=== PATIENT | male | born 1995 ===

== ENCOUNTER 2025-09-23 10:30 | Emergency (ER) | payer OTHER, SELFPAY ==
--- NOTE | ~2025-09-23 | CT_ITS ---
EXAMINATION: CT ABDOMEN AND PELVIS WITHOUT CONTRAST CLINICAL INFORMATION: Left flank pain and hematuria. COMPARISON: None available. TECHNIQUE: Multidetector volumetric imaging was performed from the superior aspect of the liver through the pubic symphysis. Sagittal and coronal reformatted images were obtained on the technologist's workstation. This CT examination was performed using dose optimization techniques as appropriate, variously including the following: *Automated exposure control *Adjustment of mA and/or kV according to patient size (this includes techniques or standardized protocols for targeted exams where dose is matched to indication/reason for exam; i.e. extremities or head) *Use of iterative reconstruction technique FINDINGS: LUNG BASES: The lung bases are clear. The heart size is normal. There are no effusions present. Normal GE junction. LIVER, GALLBLADDER, AND BILIARY TREE: The unenhanced liver is normal in size, shape, and attenuation. There is a calcified granuloma in segment 6. No focal hepatic lesion or biliary ductal dilatation is present. The gallbladder is unremarkable with no evidence of radiopaque gallstones, gallbladder wall thickening, or obvious pericholecystic inflammatory changes. PANCREAS: Unremarkable. SPLEEN: Unremarkable. ADRENAL GLANDS: Unremarkable. KIDNEYS AND URETERS: There is mild left hydronephrosis and hydroureter secondary to a 2 x 4 mm obstructing calculus in the distal left ureter, a few centimeters proximal to the left UVJ. There are 2 mm nonobstructing calculi in the upper poles of both kidneys. There are no additional urological calculi. There are no renal masses. The right kidney demonstrates no evidence of hydronephrosis. Right ureter is nondilated. BLADDER: Normal in appearance. GASTROINTESTINAL TRACT: The stomach, duodenum, and small bowel appear normal. A normal appendix is visualized. The colon is normal in caliber and course. There are a few scattered diverticuli present. There is no wall thickening or inflammation. The rectum appears normal. ABDOMINAL WALL: There is no hernia or mass. LYMPH NODES: There is no abnormal lymphadenopathy present. VASCULAR: Normal in appearance. PELVIC VISCERA: The prostate is normal. Seminal vesicles are normal. OSSEOUS STRUCTURES: There is no suspicious lytic or blastic bone lesion. CT/CT abdomen pelvis wo IV con IMPRESSION: 1. Mild left hydronephrosis and hydroureter secondary to a 2 x 4 mm obstructing calculus in the distal left ureter, a few cm proximal to the left UVJ. 2. There are 2 mm nonobstructing calculi in the upper poles of both kidneys. There are no additional urological calculi present. The kidneys are otherwise normal in appearance. Electronically signed by: Burton Morris MD 09/23/2025 02:49 PM [place]
[2025-09-23 11:05] VITALS: BP 140/65; PULSE 65; RESP 18; TEMP 36.7; O2SAT 99; BMI 39.3
--- NOTE | 2025-09-23 11:24 | ED.MALEGU ---
HPI - Male Genitourinary General Chief complaint: Urogenital-Male Stated complaint: kidney stone Time Seen by Provider: 09/23/25 11:31 Source: patient Mode of arrival: ambulatory Limitations: no limitations History of Present Illness ED Provider: ASAD TALAVERA Narrative: 30-year-old male with no significant past medical history here with complaint of developing left-sided abdominal pain yesterday that radiates up to the ribs as well as his left testicle. He has not had a fever but he has nausea, he noted hematuria this morning. He has no prior history of kidney stones. He has no testicular lesions or pain when touching that area. He has not had prior abdominal surgery. He has not taken any medications for the pain. MD Complaint: other (Left flank pain and hematuria) Onset (ago): day(s) (1) Duration: constant Location: left flank Radiation: left testicle Severity: moderate Quality: sharp Relieving factors: none Exacerbating factors: none Associated symptoms: Reports blood in urine and nausea/vomiting Related Data Previous Rx's ?Medication ?Instructions ?Recorded hydrocodone 5 mg-acetaminophen 300 1 tab PO Q8H PRN pain 3 days #14 09/23/25 mg tablet tabs ketorolac 10 mg tablet 10 mg PO TID PRN pain 5 days #15 09/23/25 tabs ondansetron 4 mg disintegrating 4 mg PO Q8H PRN nausea and 09/23/25 tablet vomiting #20 tabs tamsulosin 0.4 mg capsule 0.4 mg PO DAILY 7 days #7 caps 09/23/25 Allergies Allergy/AdvReac Type Severity Reaction Status Date / Time No Known Allergies Allergy Verified 09/23/25 11:06 Review of Systems Review of Systems: Constitutional : No Fever, No Chills ENT/Mouth : No sore throat Eyes: No Eye Pain, No Swelling, No Redness Cardiovascular : No Chest Pain, No SOB Respiratory : No Cough, No Sputum, No Wheezing Gastrointestinal : positive Nausea, Vomiting, No Diarrhea, positive abdominal pain Genitourinary : No Dysuria, no urinary frequency, positive Hematuria, positive Flank Pain Musculoskeletal : No joint pain, No Myalgias Skin : No Skin Lesions, No rash Neuro : No Weakness, No Numbness, No Headache All other systems reviewed and are negative PMFSH Past Medical History Attestation statement: The following information was validated with the patient. Source: old records reviewed Medical History No pertinent past medical history Social History Social History (Updated 09/23/25 @ 11:37 by Beatrice Pop DO) Patient Tobacco Use Status: Never used Tobacco Physical Exam Vital Signs: Vital Signs: Last Vital Signs Temp 97.9 F 09/23/25 15:43 Pulse 62 09/23/25 15:43 Resp 15 09/23/25 15:43 BP 140/86 H 09/23/25 15:43 Pulse Ox 100 09/23/25 15:43 O2 Del Method Room Air 09/23/25 15:43 BMI result Body Mass Index 39.3 Appearance: Alert. Oriented X3. acute distress. Appears uncomfortable in pain mild distress Eyes: Pupils equal, round and reactive to light. ENT: Pharynx normal. Neck: Normal inspection. Neck supple. CVS: Normal heart rate and rhythm. Pulses normal. Respiratory: No respiratory distress. Breath sounds normal. Abdomen: Soft has mild left mid abdominal pain as well as left CVA tenderness to palpation Skin: Skin warm and dry. Normal skin color. Normal skin turgor. Extremities: No lower extremity edema. Neuro: Oriented X 3. No motor deficit. No sensory deficit. CN2-12 intact Course Course Course Narrative: RME: 30 yold male presents tot he ED for left side dtesticular pain raidaring up to ribs with hematuria. labs Utrasound ordered. Medications Administered Discontinued Medications Generic Name Dose Route Start Last Admin Trade Name Freq PRN Reason Stop Dose Admin Lactated Ringer's 1,000 mls @ 999 mls/hr 09/23/25 11:41 09/23/25 14:34 Lr IV 09/23/25 12:41 Infused .Q1H1M ONE Infusion Ketorolac Tromethamine 15 mg 09/23/25 11:41 09/23/25 12:10 Ketorolac Tromethamine 15 Mg/Ml Vial IVPUSH 09/23/25 11:42 15 mg ONCE ONE Administration Morphine Sulfate 4 mg 09/23/25 11:41 09/23/25 12:10 Morphine Sulfate 4 Mg/Ml Cartridge IVPUSH 09/23/25 11:42 4 mg ONCE ONE Administration Protocol Ondansetron HCl 4 mg 09/23/25 11:41 09/23/25 12:10 Ondansetron Hcl 4 Mg/2 Ml Vial IVPUSH 09/23/25 11:42 4 mg ONCE ONE Administration Medical Decision Making Medical Decision Making [facility] Narrative: 30-year-old male with no significant past medical history here with complaint of left flank pain as well as hematuria this started yesterday now he has radiation to his left groin. He has no testicular pain or hernia felt on exam. At this time I suspect he has renal colic. I am going to obtain kidney function, urine, CT scan to assess for stone. Due to his pain I will start on IV Toradol as well as IV morphine. Differential Diagnosis Differential Diagnoses: The differential diagnosis associated with the presentation includes Renal colic, constipation, urinary tract infection Admission/Observation Consideration of admission/observation: Escalation of care including admission/observation considered Feels much better kidney function normal no UTI can be managed with pain control He will be given expectant management reasons to return Lab Data [facility] Lab Attestation statement: I reviewed the patient's lab results. 09/23/25 11:30 09/23/25 11:30 Labs: Lab Results 09/23/25 Range/Units 11:30 WBC 7.3 (4.8-10.8) X10*3/uL RBC 4.95 (4.60-5.80) X10*6/uL Hgb 14.9 (14.0-18.0) g/dl Hct 43.0 (42.0-52.0) % MCV 86.9 (80.0-98.0) fL MCH 30.1 (27.0-33.0) pg MCHC 34.7 (31.0-36.0) g/dl RDW 12.1 (11.0-16.0) % Plt Count 304 (160-400) X10*3/uL MPV 9.3 L (9.4-12.4) fL Immature Gran % (Auto) 0.7 H (0.0-0.4) % Neut % (Auto) 61.3 (45-73) % Lymph % (Auto) 29.6 (20-40) % Barber % (Auto) 5.6 (2-11) % Eos % (Auto) 1.8 (0-4) % Baso % (Auto) 1.0 (0-2) % Lymph # (Auto) 2.2 (1.2-4.9) X10*3/uL Barber # (Auto) 0.4 (0.1-1.2) X10*3/uL Eos # (Auto) 0.1 (0.0-0.4) X10*3/uL Baso # (Auto) 0.1 (0.0-0.2) X10*3/uL Abs Immat Gran (auto) 0.05 H (0.00-0.03) X10*3/uL Absolute Neuts (auto) 4.5 (2.0-8.3) x10*3/uL Absolute Nucleated RBC 0.000 (0.0-0.012) X10*3/uL Nucleated RBC % (auto) 0.0 (0.0-0.2) /100WBC Sodium 141 (135-145) mmol/L Potassium 3.9 (3.3-5.1) mmol/L Chloride 107 (96-108) mmol/L Carbon Dioxide 29 (22-29) mmol/L Anion Gap 9 L (12-20) BUN 10 (9-16) mg/dL Creatinine 0.79 (0.5-1.4) mg/dL Estim Creat Clear Calc 156.9 Estimated GFR > 60 Random Glucose 96 (60-115) mg/dL Calcium 8.9 (8.4-10.2) mg/dL Total Bilirubin 0.5 (0.0-1.0) mg/dL AST 23 (5-37) U/L ALT 25 (0-40) U/L Alkaline Phosphatase 48 (39-117) U/L Total Protein 7.7 (6.5-8.0) g/dL Albumin 4.8 (3.5-5.0) g/dL Urine Color Red A Urine Appearance Clear Urine pH 8.0 (5.0-9.0) Ur Specific [place] 1.010 (1.005-1.025) Urine Protein 30 (1+) H (Neg-Trace) mg/dL Urine Glucose (UA) Negative (Negative) mg/dL Urine Ketones Negative (Negative) mg/dL Urine Blood Large (3+) H (Negative) Urine Nitrite Negative (Negative) Ur Leukocyte Esterase Trace H (Negative) Urine RBC >20 H (0-2) /HPF Urine WBC 0-5 (0-5) /HPF Ur Squamous Epith Cells 0-2 (0-2) /HPF Urine Bacteria None Seen (None Seen) Hyaline Casts 0-2 (0-2) /LPF Ur N gonorrhoeae DNA (PCR) NOT DETECTED (Not Detect.) Ur Chlamydia DNA (PCR) NOT DETECTED (Not Detect.) Independent Interpretation I performed an independent interpretation of an: CT Scan (Given the size of the stone in the distal left ureter I suspect he might pass this at home we will trial with medications and instructed to return if it does not improve) Radiology Impression Discussion of test interpretation with radiology: I have reviewed the radiologist's reading. External Record Review External record reviewed: Outpatient record Prescription Management I considered prescription management with: Pain Medication and Other Discharge Plan Discharge Clinical Impression: Ureterolithiasis Patient Disposition: Home, Self-Care Instructions: Ureteral Stones (ED) Additional Instructions: Your labs are reassuring in your urine shows no infection On your CT scan you do have stones in the right kidney that are very small but you also have a stone in the left ureter which is a small to that carries urine down from your kidney to your bladder. The stone the stone is 2mm by 4 mm it is very close to where the bladder starts and he will likely pass this at home. You need to drink plenty of fluids and stay hydrated Take medications when you have pain do not wait too long as he will start vomiting Return for any fevers greater than 100.4, inability to urinate, inability to eat or drink, or any other concerns [facility] will be contacting you within 2 business days after being discharged from the Emergency Department. During this phone call, they will inform you when your follow up appointment will be scheduled. If you have not received a call from [facility] after 2 business days, please call the office at [phone]. Prescriptions: New ketorolac 10 mg tablet 10 mg PO TID PRN (Reason: pain) 5 Days Qty: 15 0RF Rx Instructions: given IV toradol in department tamsulosin 0.4 mg capsule 0.4 mg PO DAILY 7 Days Qty: 7 0RF ondansetron 4 mg tablet,disintegrating 4 mg PO Q8H PRN (Reason: nausea and vomiting) Qty: 20 0RF hydrocodone-acetaminophen 5-300 mg tablet 1 tab PO Q8H PRN (Reason: pain) 3 Days Qty: 14 0RF Rx Instructions: Partial Fill upon patient request. Stand Alone Forms: Work/School Release Interventions: ED Discharge Assessment Last Done: 09/23/25 15:43 Discharge Date/Time: 09/23/25 15:44 Print Language: Cameroonian
[2025-09-23 11:46] LABS: MANUAL DIFF FLAG NO
[2025-09-23 11:48] LABS: Appearance Urine Clear; Glucose Urine UA Negative (Negative); Hematocrit 43.0 % (42.0-52.0); Hemoglobin 14.9 g/dl (14.0-18.0); Imm Gran Abs Auto 0.05 X10*3/uL (0.00-0.03); Imm Gran Pct Auto 0.7 % (0.0-0.4); Lymphocytes Absolute Auto 2.2 X10*3/uL (1.2-4.9); Mean Corpuscular HGB Conc 34.7 g/dl (31.0-36.0); Mean Corpuscular Hemoglobin 30.1 pg (27.0-33.0); Mean Corpuscular Volume 86.9 fL (80.0-98.0); NRBC Abs Auto 0.000 X10*3/uL (0.0-0.012); NRBC Pct Auto 0.0 /100WBC (0.0-0.2); PH 8.0 (5.0-9.0); Platelet Count 304 X10*3/uL (160-400); Red Blood Count 4.95 X10*6/uL (4.60-5.80); Specific Gravity - Urine 1.010 (1.005-1.025); UMIC TRIGGER UACC YES; White Blood Count 7.3 X10*3/uL (4.8-10.8)
[2025-09-23 12:06] LABS: Alanine Aminotransferase 25 U/L (0-40); Albumin Level 4.8 g/dL (3.5-5.0); Alkaline Phosphatase 48 U/L (39-117); Anion Gap 9 (12-20); Aspartate Amino Transferase 23 U/L (5-37); Blood Urea Nitrogen 10 mg/dL (9-16); Calcium 8.9 mg/dL (8.4-10.2); Carbon Dioxide 29 mmol/L (22-29); Chloride 107 mmol/L (96-108); Creatinine Clr Calc Pharmacy 156.9; Estimated Glomerular Filt Rate > 60; Potassium 3.9 mmol/L (3.3-5.1); Sodium 141 mmol/L (135-145); Total Protein 7.7 g/dL (6.5-8.0)
[2025-09-23] MEDS: Lactated Ringers 1,000 ML 999 ML IV (12:08)
[2025-09-23 13:22] LABS: CT PCR Urine NOT DETECTED (Not Detect.); NG PCR Urine NOT DETECTED (Not Detect.)
[2025-09-23 15:27] VITALS: BP 140/86; PULSE 62; RESP 15; TEMP 36.6; O2SAT 100
[2025-09-23 15:43] VITALS: BP 140/86; PULSE 62; RESP 15; TEMP 36.6; O2SAT 100
== END 2025-09-23 15:44 | disposition home or self-care (01) ==
PROVIDERS: Physician Assistant; Emergency Provider Emergency Medicine
DX: N20.1 Calculus of ureter (principal); N50.812 Left testicular pain; R11.2 Nausea with vomiting, unspecified; R31.9 Hematuria, unspecified; R07.89 Other chest pain; R10.22 Pelvic and perineal pain left side; Z79.899 Other long term (current) drug therapy
CPT/HCPCS: 36415; 74176; 80053; 81001; 85025; 87491; 87591; 96365; 96366; 96367; 96375; 99284; J1885; J2270; J2405; J7120

== ENCOUNTER → 2025-09-23 13:50 | Outpatient (BNV) | payer OTHER, SELFPAY | PROVIDERS: Emergency Provider Emergency Medicine; Visit Provider Radiology Diagnostic Radiology | DX: N13.2 Hydronephrosis with renal and ureteral calculous obstruction (principal); N13.4 Hydroureter | CPT/HCPCS: 74176 ==